=== PATIENT | female | born 1970 | race African-American/Black ===

== ENCOUNTER 2018-08-25 15:08 | Inpatient (IN) ==
[2018-08-25] MEDS ORDERED: NITROGLYCERIN TOP ONE (15:23)
[2018-08-25] MEDS ORDERED: ASPIRIN PO ONE (15:23)
[2018-08-25 15:48] LABS: BASO# 0.03 X1000 (0.0-0.2); BASO% 0.5 % (0.0-0.8); EOS# 0.15 X1000 (0.0-0.7); EOS% 2.4 % (0.0-10.0); HEMATOCRIT 41.1 % (37.0-47.0); HEMOGLOBIN 13.9 g/dL (12.0-16.0); IMM GRAN# 0.02 X1000 (0.0-0.04); IMM GRAN% 0.3 % (0.0-0.5); LYMPH# 2.07 X1000 (1.2-3.4); LYMPH% 33.1 % (20.5-51.1); MCH 28.1 PG (27-31); MCHC 33.8 g/dL (33-37); MONO# 0.72 X1000 (0.11-0.59); MONO% 11.5 % (1.7-9.3); MPV 8.6 FL (7.4-10.4); NEUT# 3.26 X1000 (1.4-6.5); NEUT% 52.2 % (42.2-75.2); PLT 406 X1000 (130-400); RBC 4.95 XMIL (4.2-5.4); WBC 6.25 X1000 (4.8-10.8)
--- NOTE | 2018-08-25 16:00 | Diag Imaging Result Doc PS360 ---
EXAM: CHEST-2 VIEWS HISTORY: short of breath TECHNIQUE: PA and Lateral chest x-ray COMPARISON: 07/21/2018 FINDINGS: There is cardiomegaly. The pulmonary vasculature is not congested. Stable left pleural thickening. No infiltrate, effusion, or pneumothorax is appreciated. Stable deformity left posterior rib. IMPRESSION: No acute cardiopulmonary abnormality is identified. Electronically signed by Dee Elias 08/25/2018 3:57 PM
[2018-08-25 16:19] LABS: AGAP 13; ALBUMIN 4.2 g/dL (3.5-5.0); ALKALINE PHOSPHATASE 88 U/L (32-104); BUN 8 mg/dL (8-22); CALCIUM 9.1 mg/dL (8.8-10.2); CHLORIDE 106 mmol/L (98-107); CK PROFILE 82 U/L (24-173); COSMO 280; CREATININE 0.7 mg/dL (0.5-0.9); ESTIMATED GFR > 60; GLUCOSE 98 mg/dL (70-104); GOT 20 U/L (10-30); GPT 16 U/L (10-36); LIPASE 33 U/L (13-60); SODIUM 141 mmol/L (136-145); TCO2 22 mmol/L (25-35); TOTAL PROTEIN 7.5 g/dL (6.3-8.3)
--- NOTE | 2018-08-25 16:49 | EKG Report ---
Test Performed on : 08/25/2018 3:21:57 PM Test Reason : epigastric area pain worse on movement anxiety Blood Pressure : / mmHG Vent. Rate : 112 BPM Atrial Rate : 112 BPM P-R Int : 140 ms QRS Dur : 074 ms QT Int : 348 ms P-R-T Axes : 053 -13 040 degrees QTc Int : 475 ms Sinus tachycardia. 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
[2018-08-25] MEDS ORDERED: ZOFRAN IV PRN (17:37)
[2018-08-25] MEDS ORDERED: TYLENOL PO PRN (17:37)
[2018-08-25] MEDS ORDERED: NITROGLYCERIN SL PRN (17:37)
[2018-08-25] MEDS ORDERED: XANAX PO PRN (17:39)
[2018-08-25] MEDS ORDERED: ULTRAM PO PRN (17:39)
[2018-08-25] MEDS ORDERED: APRESOLINE IV PRN (17:40)
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
[2018-08-25] MEDS: VASOTEC PO SCH (19:08)
[2018-08-25] MEDS: SYMBICORT 80/4.5 MICROGM INHALER INH SCH (19:20)
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
[2018-08-26] MEDS: PRILOSEC PO SCH (06:34)
[2018-08-26 06:43] LABS: BASO# 0.03 X1000 (0.0-0.2); BASO% 0.4 % (0.0-0.8); HEMATOCRIT 38.2 % (37.0-47.0); HEMOGLOBIN 12.4 g/dL (12.0-16.0); IMM GRAN# 0.03 X1000 (0.0-0.04); IMM GRAN% 0.4 % (0.0-0.5); LYMPH# 2.61 X1000 (1.2-3.4); LYMPH% 39.1 % (20.5-51.1); MCH 27.9 PG (27-31); MCHC 32.5 g/dL (33-37); MCV 85.8 FL (81-99); MONO# 0.92 X1000 (0.11-0.59); MONO% 13.8 % (1.7-9.3); NEUT# 2.89 X1000 (1.4-6.5); NEUT% 43.3 % (42.2-75.2); PLT 343 X1000 (130-400); RBC 4.45 XMIL (4.2-5.4); RDW 14.1 % (11.5-14.5); WBC 6.68 X1000 (4.8-10.8)
[2018-08-26] MEDS ORDERED: PRILOSEC PO SCH (07:00)
[2018-08-26 07:19] LABS: AGAP 10; ALBUMIN 3.7 g/dL (3.5-5.0); ALKALINE PHOSPHATASE 81 U/L (32-104); BUN 15 mg/dL (8-22); CALCIUM 8.7 mg/dL (8.8-10.2); CHLORIDE 105 mmol/L (98-107); CHOLESTEROL 170 mg/dL (0-200); COSMO 278; CREATININE 0.8 mg/dL (0.5-0.9); ESTIMATED GFR > 60; GLUCOSE 88 mg/dL (70-104); GOT 15 U/L (10-30); GPT 17 U/L (10-36); HDL 60 mg/dL (45-65); LDL 88 mg/dL; MAGNESIUM 2.1 mg/dL (1.5-2.7); SODIUM 139 mmol/L (136-145); TCO2 24 mmol/L (25-35); TOTAL PROTEIN 6.6 g/dL (6.3-8.3); TRIGLYCERIDES 111 mg/dL (35-135); VLDL 22 mg/dL
[2018-08-26] MEDS: SYMBICORT 80/4.5 MICROGM INHALER INH SCH ×2 (08:48→19:30)
[2018-08-26] MEDS: NORVASC PO SCH (09:03)
[2018-08-26] MEDS: EFFEXOR XR PO SCH (09:03)
[2018-08-26] MEDS: VASOTEC PO SCH (09:03)
--- NOTE | 2018-08-26 22:19 | PROGRESS NOTE ---
DATE: 08/26/2018 SUBJECTIVE: Patient notes that her chest pain is improving. Denies any fevers or chills. PHYSICAL EXAMINATION: Vital Signs: Reviewed. She is awake, alert. She is in no respiratory distress currently. HEENT: Normocephalic. Neck: Supple. Cardiovascular: Regular rate. Chest: Clear. Abdomen: Soft. Extremities: Moves all extremities. ASSESSMENT: 1. Chest pain. 2. Hypertension. 3. Chronic tobacco abuse. 4. Asthma. PLAN: The patient is uncomfortable going home secondary to her chest pain. Notes this is not completely resolved. Her enzymes are negative thus far. We will continue to follow. Hopefully, discharge home later this afternoon or certainly by tomorrow if symptoms continue to improve. cc: Sawyer Hampton MD
[2018-08-27] MEDS: PRILOSEC PO SCH (06:26)
[2018-08-27] MEDS: SYMBICORT 80/4.5 MICROGM INHALER INH SCH (07:42)
[2018-08-27] MEDS: EFFEXOR XR PO SCH (08:49)
[2018-08-27] MEDS: VASOTEC PO SCH (08:50)
[2018-08-27] MEDS: NORVASC PO SCH (08:50)
[2018-08-27 13:57] VITALS: BP 139/91
--- NOTE | 2018-08-28 14:20 | DISCHARGE SUMMARY ---
ADMISSION DATE: 08/25/2018 DISCHARGE DATE: 08/27/2018 DISCHARGE DIAGNOSES: 1. Chest pain, resolved. 2. Hypertension. 3. Longstanding tobacco abuse. 4. Asthma. 5. Chronic arthritis. 6. Hypertension. CONSULTATIONS: None. PROCEDURES: Number. BRIEF HOSPITAL COURSE: The patient is a 48-year-old female who presented to the hospital with chest pain midsternal. She had no real radiation of the pain. It did come on with activity. She was ruled out for an NE. She was watched in the hospital. Thankfully, her symptoms have resolved. Her chest pain has disappeared and therefore we will discharge her home. cc: Sawyer Hampton MD
== END 2018-08-27 14:22 | disposition home or self-care (01) | DRG 313 ==
LOC: P.ED 15:08 → P.MEDSURG 18:11
PROVIDERS: ATTEND Family Medicine
CPT/HCPCS: 71020; 71046; 80053; 80061; 82550; 83690; 83735; 84484; 85025; 85379; 93005; 94640; 94761; 99285; A9270; J2405